=== PATIENT | female | born 1995 | race African-American/Black ===

== ENCOUNTER 2022-09-29 04:19 | Inpatient (IN) | payer OTHER ==
[2022-09-26 18:15] VITALS: BMI 20.1
[2022-09-29] MEDS ORDERED: TRANEXAMIC ACID 1000 MG/10 ML VIAL IVPUSH ONE (09:00)
[2022-09-29] MEDS ORDERED: CEFAZOLIN SODIUM 2 GM in DEXTROSE 5%-WATER 100 ML IVPB ONE (09:00)
[2022-09-29] MEDS ORDERED: PHENAZOPYRIDINE HCL 100 MG TABLET (FP) PO ONE (09:00)
[2022-09-29] MEDS ORDERED: ACETAMINOPHEN 1000 MG/100 ML BAG IVPB ONE (09:00)
[2022-09-29] MEDS ORDERED: GABAPENTIN 300 MG CAPSULE PO ONE (09:00)
[2022-09-29] MEDS ORDERED: ceFAZolin SODIUM 1 GM VIAL ONE (09:01)
[2022-09-29] MEDS ORDERED: MIDAZOLAM HCL 2 MG/2 ML SINGLE DOSE VIAL ONE ×3 (09:37→10:13)
[2022-09-29] MEDS ORDERED: KETAMINE HCL 500 MG/10 ML VIAL ONE (09:37)
[2022-09-29] MEDS ORDERED: DEXAMETHASONE SOD PHOSPHATE 10 MG/1 ML VIAL ONE (09:42)
[2022-09-29] MEDS ORDERED: BUPIVACAINE HCL/PF 0.5% (5MG/ML) 10 ML VIAL ONE (09:43)
[2022-09-29] MEDS ORDERED: DEXMEDETOMIDINE HCL 200 MCG/2 ML IVPB ONE (10:12)
[2022-09-29] MEDS ORDERED: ceFAZolin SODIUM 1 GM VIAL IVPB ONE (10:45)
[2022-09-29] MEDS ORDERED: HEPARIN NA (PORCINE) 5,000 UNITS/ML 1ML VIAL ONE (10:46)
[2022-09-29] MEDS ORDERED: HEPARIN NA (PORCINE) 5,000 UNITS/ML 1ML VIAL SQ ONE (11:05)
[2022-09-29] MEDS ORDERED: oxyCODONE HCL 5 MG TABLET PO PRN ×2 (12:14)
[2022-09-29] MEDS ORDERED: ONDANSETRON 4 MG/2 ML VIAL IVPUSH PRN (12:14)
[2022-09-29] MEDS ORDERED: BISACODYL 5 MG TABLET.DR (FP) PO PRN (12:14)
[2022-09-29] MEDS ORDERED: SIMETHICONE 80 MG TAB.CHEW (FP) PO PRN (12:14)
[2022-09-29] MEDS ORDERED: DOCUSATE SODIUM 100 MG CAPSULE (FP) PO PRN (12:14)
[2022-09-29] MEDS ORDERED: ACETAMINOPHEN 325 MG TABLET (FP) PO SCH (12:15)
[2022-09-29] MEDS ORDERED: SODIUM CHLORIDE 1,000 ML IV SCH (12:30)
[2022-09-29] MEDS ORDERED: LACTATED RINGERS SOLUTION 1,000 ML IV SCH (13:15)
[2022-09-29] MEDS ORDERED: ZOLPIDEM TARTRATE 5 MG TABLET PO PRN (13:53)
[2022-09-29] MEDS: ACETAMINOPHEN 325 MG TABLET (FP) PO SCH (17:33)
[2022-09-29] MEDS: CEFAZOLIN 1 GM in DEXTROSE 5%-WATER - 50 ML IVPB SCH (17:33)
[2022-09-29 19:17] LABS: HEMATOCRIT 35.8 % (32.4-45.2); HEMOGLOBIN 12.4 GM/dL (10.7-15.3); MCH 32.3 pg (25.7-33.7); MCHC 34.5 g/dl (32.0-36.0); MEAN CELL VOLUME 93.4 fl (80-96); MEAN PLT VOLUME 10.5 fl (7.5-11.1); PLATELET COUNT 196 10^3/uL (134-434); RBC 3.83 M/mm3 (3.60-5.2); RDW 11.1 % (11.6-15.6); WHITE BLOOD COUNT 9.8 K/mm3 (4.0-10.0)
[2022-09-29 20:35] LABS: BLOOD UREA NITROGEN 7.7 mg/dL (7-18); CALCIUM 9.3 mg/dL (8.5-10.1)
[2022-09-29 20:38] LABS: CREATININE 0.5 mg/dL (0.55-1.3)
[2022-09-29] MEDS: IBUPROFEN 800 MG/8 ML IJ IVPB SCH (20:48)
[2022-09-29 22:58] VITALS: RESP 18
[2022-09-30] MEDS: ACETAMINOPHEN 325 MG TABLET (FP) PO SCH ×2 (00:54→05:48)
[2022-09-30] MEDS: CEFAZOLIN 1 GM in DEXTROSE 5%-WATER - 50 ML IVPB SCH (00:59)
[2022-09-30] MEDS: IBUPROFEN 800 MG/8 ML IJ IVPB SCH (05:47)
[2022-09-30 08:30] VITALS: BP 98/63; PULSE 72; TEMP 98
[2022-09-30 08:57] LABS: HEMATOCRIT 34.5 % (32.4-45.2); HEMOGLOBIN 11.9 GM/dL (10.7-15.3); MCH 32.1 pg (25.7-33.7); MCHC 34.5 g/dl (32.0-36.0); MEAN CELL VOLUME 92.9 fl (80-96); MEAN PLT VOLUME 10.2 fl (7.5-11.1); PLATELET COUNT 184 10^3/uL (134-434); RBC 3.72 M/mm3 (3.60-5.2); RDW 11.3 % (11.6-15.6); WHITE BLOOD COUNT 12.5 K/mm3 (4.0-10.0)
[2022-09-30 09:35] LABS: BLOOD UREA NITROGEN 7.4 mg/dL (7-18); CALCIUM 8.6 mg/dL (8.5-10.1)
[2022-09-30 09:38] LABS: CREATININE 0.4 mg/dL (0.55-1.3)
[2022-09-30] MEDS ORDERED: ENOXAPARIN NA (PORCINE) 40 MG/0.4 ML DISP.SYRIN SQ SCH (10:00)
== END 2022-09-30 11:26 | disposition home or self-care (01) | DRG 519 ==
LOC: J2C 04:19 → EDSTATUS 10:00 → J3W 14:47
PROVIDERS: ADMIT Obstetrics & Gynecology; ATTEND Obstetrics & Gynecology
PROC: 0UB10ZZ Excision of Left Ovary, Open Approach (ICD-10-PCS; 2022-09-29)
PROC: 0UB90ZZ Excision of Uterus, Open Approach (ICD-10-PCS; principal; 2022-09-29 10:00)
DX: D25.1 Intramural leiomyoma of uterus (principal); N83.12 Corpus luteum cyst of left ovary; R10.2 Pelvic and perineal pain; R33.9 Retention of urine, unspecified
CPT/HCPCS: 36415; 71046-TC-FY; 80048; 81025; 85027; 86850; 86900; 86901; 88305-TC; 94760; C9803-CS; J1100; J1644; U0003; U0005